=== PATIENT | female | born 1935 | race Caucasian/White ===

== ENCOUNTER 2018-06-20 19:28 | Emergency (ER) | payer MEDICARE, OTHER ==
[~2018-06-20] VITALS: Ht 157.5 cm; Wt 71.2 kg
[~2018-06-20 19:28] MED LIST: DIOVAN HCT 1601 EACH PO; DIOVAN160 MG PO; METOPROLOL SUC100 MG PO; NIFEDIPINE ER30 MG PO
--- OUTSIDE RECORDS SUMMARY | 2018-06-20 19:31 | XMS REPORT | Clinical Summary ---
Author Author [facility] Organization [facility] Address Unknown Phone Unavailable Care Team Providers Care Press Catcher Name Role Phone Tj Morgan MD PCP Allergies Comments Active Allergy Reactions Severity Noted Date Iodinated Contrast- Oral 01/28/2016 And Iv Dye Niacin 01/28/2016 Ramipril 01/28/2016 Sulfa (Sulfonamide 01/28/2016 Antibiotics) Medications End Date Status Medication Sig Dispensed Refills Start Date Active metoprolol succinate XL Take 100 mg 0 (TOPROL-XL) 100 mg 24 hr by mouth tablet daily. Active NIFEdipine XL (NIFEDICAL TK 1 T PO 0 XL) 30 MG 24 hr tablet ONCE D Active clopidogrel (PLAVIX) 75 Take 75 mg by 0 mg tablet mouth daily. Active venlafaxine XR Take 75 mg by 0 (EFFEXOR-XR) 75 MG 24 hr mouth daily. capsule Active VITAMIN B COMPLEX ORAL Take 1 tablet 0 by mouth daily. Active CALCIUM CARBONATE/VITAMIN Take 1 tablet 0 D3 (OS-AMANDA 500 + D3 ORAL) by mouth daily. Active cholecalciferol, vitamin Take 2,000 0 D3, (VITAMIN D3) 2,000 Units by unit capsule capsule mouth daily. Active aspirin (ECOTRIN) 81 MG Take 81 mg by 0 enteric coated tablet mouth daily. Active esomeprazole (NexIUM) 40 Take 40 mg by 0 MG capsule mouth daily before breakfast. Active BD LUER-GARY SYRINGE 3 mL USE TO INJECT 10 Syringe 6 23 gauge x 1 1/2" syringe 1 ML 7 INTRAMUSCULAR LY EVERY 4 WEEKS DIRECTED Active furosemide (LASIX) 40 mg Take 40 mg by 0 tablet mouth daily. 10/20/2018 Active carbidopa-levodopa Take 1 tablet 360 tablet 1 (SINEMET) 25-100 mg per by mouth 4 9 tablet (four) times a day for 180 days. Active cyanocobalamin 1,000 INJECT 1 ML 10 mL 6 mcg/mL injection INTRAMUSCULAR 9 LY EVERY 4 WEEKS DIRECTED Active losartan (COZAAR) 50 MG Take 50 mg by 0 tablet mouth daily. 05/10/2019 Active carbidopa-levodopa Take 1 tablet 360 tablet 3 (SINEMET) 25-100 mg per by mouth 4 9 tablet (four) times a day. 12/31/2019 Active cyanocobalamin 1,000 Inject 1 mL 10 mL 1 mcg/mL injection (1,000 mcg 9 total) into the shoulder, thigh, or buttocks every 30 (thirty) days. 05/10/2019 Active syringe with needle, 1 Units every 15 Syringe 1 safety 3 mL 23 gauge x 1" 30 (thirty) 9 syringe days. 05/10/2018 Discontinued valsartan (DIOVAN) 160 MG Take 80 mg by 0 tablet mouth daily. 05/10/2018 Discontinued spironolactone Take 25 mg by 0 (ALDACTONE) 25 MG tablet mouth daily. 05/10/2018 Discontinued cyanocobalamin 1,000 INJECT 1 ML 10 mL 6 mcg/mL injection INTRAMUSCULAR 7 LY EVERY 4 WEEKS DIRECTED 10/19/2017 Discontinued donepezil (ARICEPT) 10 MG Take 1 tablet 90 tablet 3 tablet (10 mg total) 7 by mouth nightly. 05/10/2018 Discontinued carbidopa-levodopa Take 1 tablet 40 tablet 0 (SINEMET) 25-100 mg per by mouth 4 8 tablet (four) times a day. Active Problems Problem Noted Date Chronic midline low back pain without sciatica 08/18/2016 Osteoarthritis of spine with radiculopathy, lumbar region 08/04/2016 Abnormal gait 01/28/2016 Cobalamin deficiency 01/28/2016 Essential hypertension 01/28/2016 Mixed anxiety depressive disorder 01/28/2016 Parkinson's disease 01/28/2016 Spinal stenosis of lumbar region 01/28/2016 Encounters Care Team Description Date Type Specialty Aaron Espinosa MD Parkinson's disease (HCC) (Primary Dx); Abnormal gait; Mixed anxiety depressive disorder; Chronic midline low back pain without sciatica; Spinal stenosis of lumbar region, unspecified whether neurogenic claudication present 05/10/2018 Office Visit Neurology Aaron Espinosa MD 05/09/2018 Refill Neurology Aaron Espinosa MD 04/22/2018 Refill Neurology Aaron Espinosa MD Parkinson's disease (Primary Dx); Abnormal gait; Mixed anxiety depressive disorder; Chronic midline low back pain without sciatica 10/19/2017 Office Visit Neurology after 06/19/2017 Family History Medical History Relation Name Comments Heart attack Father Parkinsonism Mother Stroke Mother Lung cancer Sister Relation Name Status Comments Father (Age 61) Mother (Age 87) Sister (Age 69) Social History Date Tobacco Use Types Packs/Day Years Used Former Smoker Smokeless Tobacco: Never Used Comments: stopped 25-30 years ago Alcohol Use Drinks/Week oz/Week Comments Yes 1-2 Glasses 0.6 - 1.2 occasional of wine Sex Assigned at Date Recorded Not on file Industry Job Start Date Occupation Not on file Not on file Not on file Travel End Travel History Travel Start No recent travel history available. Last Filed Vital Signs Time Taken Vital Sign Reading 05/10/2018 8:43 AM [employer] Blood Pressure 112/67 05/10/2018 8:43 AM [employer] Pulse 60 - Temperature - - Respiratory Rate - - Oxygen Saturation - - Inhaled Oxygen - Concentration 05/10/2018 8:43 AM [employer] Weight 67.6 kg (149 lb) 05/10/2018 8:43 AM [employer] Height 154.9 cm (5' 1") 05/10/2018 8:43 AM [employer] Body Mass Index 28.15 Plan of Treatment Care Team Description Date Type Specialty Aaron Espinosa MD [address] [id number] 11/12/2018 Office Visit Neurology Health Maintenance Due Date Last Done Comments SHINGLES VACCINES (#1) 1987 65+ PNEUMOCOCCAL VACCINE 2002 06/24/2013 (2 of 2 - PPSV23) INFLUENZA VACCINE 11/15/2017 12/28/2012 PNEUMOCOCCAL Completed 06/24/2013 POLYSACCHARIDE VACCINE AGE 65 AND OVER Results Not on fileafter 06/19/2017 Insurance Payer Benefit Subscriber ID Type Phone Address Plan / Group AETNA AETNA xxxxxxxx HMO HMO,POS,EP O, [facility]/[employer] Advance Directives Patient has advance care planning documents on file. For more information, rd macias contact: Eliu Romero [phone] [place] [address]
[2018-06-20] MEDS ORDERED: IBUPROFEN 400 MG TAB PO ONE (19:45)
--- NOTE | 2018-06-20 19:50 | NUR ---
PATIENT WITH [facility] HEADING TO RADILOGY DEPARTMENT
--- NOTE | 2018-06-20 20:14 | Diagnostic Imaging Report ---
LEFT KNEE - 3 Images HISTORY: Fell, rule out fracture COMPARISON: None available. FINDINGS: Bones: No acute displaced fracture. No aggressive osseous lesion. Joints: Tricompartmental degenerative changes, most notably moderate of the medial compartment. Soft tissues: Diffuse scattered atherosclerotic vascular calcifications. Partially visualized metallic vascular stent at the posterior aspect of the mid thigh. IMPRESSION: 1. No acute radiographic abnormality. 2. Medial compartment predominant tricompartmental osteoarthrosis. Signed by: Dr. Toni Thornton D.O., M.M.M. on 06/20/2018 8:10 PM
--- NOTE | 2018-06-20 20:46 | Diagnostic Imaging Report ---
Examination: CT head without contrast Clinical Indication: Fall with head injury. Technique: Transaxial noncontrast images from the skull base through the vertex were obtained. Sagittal and coronal reformatted images were done. Dose modulation, iterative reconstruction, and/or weight based adjustment of the mA/kV was utilized to reduce the radiation dose to as low as reasonably achievable. Comparison: None. Findings: Scalp: No abnormalities. Bones: Intact. No fractures. No blastic or lytic lesions. Brain sulci: Moderate volume loss for patient's age. Ventricles: No hydrocephalus. Extra-axial space: No abnormalities. Parenchyma: There are mild confluent areas of low-attenuation within subcortical and periventricular white matter, nonspecific, but could represent microvascular ischemic disease. There is a chronic lacunar infarct involving the right striatocapsular region. No masses, hemorrhage, or acute or chronic cortical based vascular insults. Suprasellar region: No abnormalities. Craniocervical junction: The foramen magnum is patent. No Chiari one malformation. Incidental findings: Atherosclerotic calcification of the cavernous and supraclinoid internal carotid and V4 segments of the bilateral vertebral arteries. Impression: 1. No acute intracranial finding. 2. Mild chronic microvascular ischemic change. Chronic right striatocapsular infarct. 3. Moderate volume loss. Signed by: Dr. Dania Bernal M.D. on 06/20/2018 8:43 PM
--- NOTE | 2018-06-20 20:49 | Diagnostic Imaging Report ---
Examination: CT CERVICAL SPINE WITHOUT CONTRAST HISTORY:Neck injury after fall. COMPARISON:None. TECHNIQUE: Multidetector helical axial images were obtained without contrast from the foramen magnum to T1. Coronal and sagittal reformatted images were done. Bone and soft tissue windows were evaluated. Dose modulation, iterative reconstruction, and/or weight based adjustment of the mA/kV was utilized to reduce the radiation dose to as low as reasonably achievable. FINDINGS: Alignment:Normal alignment and lordosis. Vertebrae: Normal height and density. No acute fracture, infection or neoplasm. Disc space heights: Normal height. Caliber of spinal canal: Developmentally normal. Posterior fossa and craniocervical junction: Foramen magnum patent. No Chiari 1 malformation. Soft tissues: No abnormality. Degenerative changes: Moderate bilateral facet arthropathy from C2 through C5. No disc herniation or canal stenosis. Visualized lung apices: No abnormalities. IMPRESSION: No acute abnormalities. Signed by: Dr. Dania Bernal M.D. on 06/20/2018 8:45 PM
== END 2018-06-20 22:24 | disposition home or self-care (01) ==
LOC: ER 19:28
DX: S00.83XA Contusion of other part of head, initial encounter (principal); S80.02XA Contusion of left knee, initial encounter; W01.0XXA Fall on same level from slipping, tripping and stumbling without subsequent striking against object, initial encounter; Y92.511 Restaurant or cafe as the place of occurrence of the external cause; I12.0 Hypertensive chronic kidney disease with stage 5 chronic kidney disease or end stage renal disease; N18.6 End stage renal disease; G20 Parkinson's disease
CPT/HCPCS: 70450; 72125; 99284

== ENCOUNTER 2023-04-17 09:53 | Inpatient (IN) | payer OTHER, MEDICARE ==
[2023-04-17] VITALS (24 sets, daily range): BP systolic 90–149; BP diastolic 51–124; PULSE 56–78; RESP 15–26; TEMP 97.8–98.3; O2SAT 85–100
[~2023-04-17] VITALS: Ht 157.5 cm; Wt 49.0 kg
[2023-04-17] MEDS ORDERED: ALBUTEROL/IPRATROPIUM 3 ML NEB NEB ONE (10:00)
[2023-04-17 10:26] LABS: BASOPHILS % 0.4 % (0.0-1.0); EOSINOPHILS % 0.1 % (0.0-6.0); HEMOGLOBIN 8.2 g/dL (12.0-16.0); LYMPHOCYTES # (AUTO) 0.8 (1.0-3.2); LYMPHOCYTES % 9.2 % (18.0-39.1); MEAN CORPUSCULAR HEMOGLOBIN 31.2 pg (28-32); MEAN CORPUSCULAR HGB CONC 31.5 g/dL (31-35); MEAN CORPUSCULAR VOLUME 98.9 fL (81-99); MONOCYTES # (AUTO) 0.8 (0.2-0.8); MONOCYTES % 9.2 % (4.4-11.3); NEUTROPHILS # (AUTO) 6.9 (2.1-6.9); NEUTROPHILS % 80.7 % (38.7-80.0); PLATELET COUNT 233 x10e3/uL (140-360); RED BLOOD COUNT 2.63 x10e6/uL (3.6-5.1); RED CELL DISTRIBUTION WIDTH 17.9 % (11.7-14.4); WHITE BLOOD COUNT 8.48 x10e3/uL (4.8-10.8)
[2023-04-17 10:45] LABS: ALBUMIN/GLOBULIN RATIO 1.4 (0.8-2.0); ALKALINE PHOSPHATASE 38 IU/L (40-150); ANION GAP 15.3 mmol/L (8-16); BILIRUBIN,TOTAL 0.4 mg/dL (0.2-1.2); BLOOD UREA NITROGEN 35 mg/dL (7-26); BUN/CREATININE RATIO 15 (6-25); CALCIUM 8.1 mg/dL (8.4-10.2); CARBON DIOXIDE 18 mmol/L (22-29); CHLORIDE 108 mmol/L (98-107); CREATINE KINASE 346 IU/L (29-168); CREATININE, SERUM 2.39 mg/dL (0.57-1.11); EST GLOMERULAR FILTRATION RATE 19 ML/MIN (>=60); GLUCOSE 93 mg/dL (74-118); POTASSIUM 4.3 mmol/L (3.5-5.1); SODIUM 137 mmol/L (136-145); TOTAL PROTEIN 5.2 g/dL (6.5-8.1)
[2023-04-17] MEDS ORDERED: FUROSEMIDE INJ 10 MG/ML 4 ML VIAL IV ONE (10:45)
[2023-04-17 10:50] LABS: ALANINE AMINOTRANSFERASE < 6 IU/L (0-55)
[2023-04-17 10:54] LABS: TROPONIN I 4.462 ng/mL (0-0.300)
[2023-04-17] MEDS ORDERED: ALBUTEROL/IPRATROPIUM 3 ML NEB NEB SCH (11:00)
[2023-04-17] MEDS ORDERED: ENOXAPARIN INJ 80 MG/0.8 ML SYR SC ONE (11:15)
[2023-04-17] MEDS ORDERED: ASPIRIN 300 MG SUPP PR STA (11:15)
[2023-04-17] MEDS ORDERED: ASPIRIN 325 MG TAB PO ONE (11:15)
[2023-04-17] MEDS ORDERED: ALBUTEROL/IPRATROPIUM 3 ML NEB NEB PRN (11:30)
[2023-04-17] MEDS ORDERED: ONDANSETRON HCL INJ 2MG/ML 2ML 2 MG/ML VIAL IV PRN (11:30)
[2023-04-17] MEDS ORDERED: HYDRALAZINE HCL 20 MG/ML VIAL IV PRN (12:00)
[2023-04-17] MEDS ORDERED: CLOPIDOGREL BISULFATE 75 MG TAB PO ONE (12:15)
[2023-04-17 13:37] LABS: CLARITY,URINE CLEAR (CLEAR); COLOR,URINE YELLOW (YELLOW); PH,URINE 5.5 (5 - 7)
[2023-04-17 13:38] LABS: BILIRUBIN,URINE NEGATIVE (NEGATIVE); GLUCOSE, URINE NEGATIVE (NEGATIVE); KETONES,URINE NEGATIVE (NEGATIVE); LEUKOCYTE ESTERASE ,URINE NEGATIVE (NEGATIVE); NITRITE,URINE NEGATIVE (NEGATIVE); PROTEIN,URINE DIPSTICK >=300 (NEGATIVE); URINE UROBILINOGEN 0.2 mg/dL (0.2 - 1)
[2023-04-17 13:55] LABS: BACTERIA,URINE RARE /HPF; EPITHELIAL CELLS,URINE FEW /LPF; RBC,URINE 0-5 /HPF (0-5); WBC,URINE (MAN) 0-5 /HPF (0-5)
[2023-04-17] MEDS: LORAZEPAM 0.5 MG TAB PO PRN (15:36)
[2023-04-17] MEDS ORDERED: FUROSEMIDE INJ 10 MG/ML 4 ML VIAL IV SCH (17:00)
[2023-04-17 20:14] LABS: TROPONIN I 18.319 ng/mL (0-0.300)
[2023-04-17] MEDS: FUROSEMIDE INJ 10 MG/ML 4 ML VIAL IV SCH (21:16)
[2023-04-17] MEDS: ACETAMINOPHEN 1000 MG/100 ML IV PRN (22:00)
[2023-04-18] VITALS (46 sets, daily range): BP systolic 83–153; BP diastolic 54–130; PULSE 54–87; RESP 12–33; TEMP 97.2–99.3; O2SAT 85–100
[2023-04-18] MEDS ORDERED: DEXTROSE 50% SYRINGE 50 ML IV STA (02:05)
[2023-04-18] MEDS ORDERED: PANTOPRAZOLE SO20 MG PO (04:59)
[2023-04-18] MEDS ORDERED: AMLODIPINE BESY10 MG PO (04:59)
[2023-04-18] MEDS ORDERED: CLOPIDOGREL75 MG PO (04:59)
[2023-04-18] MEDS ORDERED: ATORVASTATIN CA10 MG PO (04:59)
[2023-04-18] MEDS ORDERED: SENNA-S 8.6-501 EACH PO (04:59)
[2023-04-18] MEDS ORDERED: HYOSCYAMINE0.125 M1 PO (04:59)
[2023-04-18] MEDS ORDERED: ASPIRIN CHEW81 MG PO (04:59)
[2023-04-18] MEDS ORDERED: LACTULOSE10 GM/15 M (04:59)
[2023-04-18] MEDS ORDERED: HYDRALAZINE HCL25 MG PO (04:59)
[2023-04-18] MEDS ORDERED: ONDANSETRON HCL4 MG PO (04:59)
[2023-04-18] MEDS ORDERED: SINEMET 25-1001 EACH PO (04:59)
[2023-04-18] MEDS ORDERED: COREG6.25 MG PO (04:59)
[2023-04-18] MEDS ORDERED: MELATONIN3 MG PO (04:59)
[2023-04-18 06:32] LABS: BASOPHILS % 0.3 % (0.0-1.0); EOSINOPHILS # (AUTO) 0.1 (0.0-0.4); EOSINOPHILS % 1.1 % (0.0-6.0); HEMATOCRIT 27.2 % (34.2-44.1); HEMOGLOBIN 8.8 g/dL (12.0-16.0); LYMPHOCYTES # (AUTO) 0.6 (1.0-3.2); LYMPHOCYTES % 8.9 % (18.0-39.1); MEAN CORPUSCULAR HEMOGLOBIN 31.3 pg (28-32); MEAN CORPUSCULAR HGB CONC 32.4 g/dL (31-35); MEAN CORPUSCULAR VOLUME 96.8 fL (81-99); MONOCYTES # (AUTO) 0.7 (0.2-0.8); MONOCYTES % 10.7 % (4.4-11.3); NEUTROPHILS % 78.7 % (38.7-80.0); PLATELET COUNT 249 x10e3/uL (140-360); RED BLOOD COUNT 2.81 x10e6/uL (3.6-5.1); WHITE BLOOD COUNT 6.29 x10e3/uL (4.8-10.8)
[2023-04-18 06:56] LABS: ANION GAP 16.6 mmol/L (8-16); CALCIUM 8.2 mg/dL (8.4-10.2); CREATININE, SERUM 2.38 mg/dL (0.57-1.11); POTASSIUM 3.6 mmol/L (3.5-5.1)
[2023-04-18 07:21] LABS: MAGNESIUM 1.7 MG/DL (1.3-2.1); PHOSPHORUS 4.1 MG/DL (2.3-4.7)
[2023-04-18 07:35] LABS: TROPONIN I 20.743 ng/mL (0-0.300)
[2023-04-18 07:45] LABS: THYROID STIMULATING HORMONE 3.267 uIU/mL (0.350-4.940)
[2023-04-18] MEDS ORDERED: SENNA-S TABLET PO PRN (08:00)
[2023-04-18] MEDS: CARBIDOPA/LEVODOPA 25/100 TAB PO SCH ×4 (09:00→20:14)
[2023-04-18] MEDS: CLOPIDOGREL BISULFATE 75 MG TAB PO SCH (09:00)
[2023-04-18] MEDS: FUROSEMIDE INJ 10 MG/ML 4 ML VIAL IV SCH ×2 (09:19→20:14)
[2023-04-18] MEDS: ACETAMINOPHEN 1000 MG/100 ML IV PRN (11:09)
[2023-04-18 15:03] LABS: TROPONIN I 17.429 ng/mL (0-0.300)
[2023-04-18] MEDS: DEXTROSE 10% 1,000 ML IV SCH (15:26)
[2023-04-18] MEDS ORDERED: ENOXAPARIN SOD INJ 40 MG/0.4 ML SYR SC SCH (17:00)
[2023-04-18] MEDS ORDERED: Morphine 2mg Syringe 2 MG/ML SYR IV ONE (20:30)
[2023-04-18] MEDS ORDERED: NITROGLYCERIN 0.4 MG SUBL SL ONE (20:45)
[2023-04-18] MEDS ORDERED: DEXTROSE 5% IV SCH ×5 (20:45→21:00)
[2023-04-18] MEDS ORDERED: HEPARIN IV SCH ×5 (20:45→21:00)
[2023-04-18] MEDS ORDERED: [UNRECOGNIZED DRUG - OTHER] IV SCH ×5 (20:45→21:00)
[2023-04-18 21:40] LABS: INR 1.1; PROTHROMBIN TIME 14.4 seconds (11.9-14.5)
[2023-04-18] MEDS ORDERED: HEPARIN 25,000 UNIT DRIP IV ONE (21:41)
[2023-04-18] MEDS: HEPARIN 25,000 UNIT/D5W 250ML 600 UNIT in DEXTROSE 5% 250ML 250 ML IV SCH (21:56)
[2023-04-19] VITALS (31 sets, daily range): BP systolic 107–144; BP diastolic 59–97; PULSE 60–80; RESP 13–25; TEMP 98.7–99.4; O2SAT 94–100
[2023-04-19 04:37] LABS: BASOPHILS % 0.3 % (0.0-1.0); EOSINOPHILS # (AUTO) 0.1 (0.0-0.4); EOSINOPHILS % 1.6 % (0.0-6.0); HEMATOCRIT 24.6 % (34.2-44.1); LYMPHOCYTES % 17.6 % (18.0-39.1); MEAN CORPUSCULAR HEMOGLOBIN 31.4 pg (28-32); MEAN CORPUSCULAR HGB CONC 32.5 g/dL (31-35); MEAN CORPUSCULAR VOLUME 96.5 fL (81-99); MONOCYTES # (AUTO) 0.8 (0.2-0.8); NEUTROPHILS # (AUTO) 3.9 (2.1-6.9); NEUTROPHILS % 67.2 % (38.7-80.0); PLATELET COUNT 229 x10e3/uL (140-360); RED BLOOD COUNT 2.55 x10e6/uL (3.6-5.1); RED CELL DISTRIBUTION WIDTH 17.9 % (11.7-14.4); WHITE BLOOD COUNT 5.78 x10e3/uL (4.8-10.8)
[2023-04-19 05:59] LABS: ANION GAP 13.4 mmol/L (8-16); BLOOD UREA NITROGEN 34 mg/dL (7-26); BUN/CREATININE RATIO 15 (6-25); CALCIUM 7.8 mg/dL (8.4-10.2); CARBON DIOXIDE 22 mmol/L (22-29); CHLORIDE 108 mmol/L (98-107); CREATININE, SERUM 2.26 mg/dL (0.57-1.11); EST GLOMERULAR FILTRATION RATE 21 ML/MIN (>=60); GLUCOSE 106 mg/dL (74-118); POTASSIUM 3.4 mmol/L (3.5-5.1); SODIUM 140 mmol/L (136-145)
[2023-04-19 06:14] LABS: ALBUMIN 2.6 g/dL (3.5-5.0); ALBUMIN/GLOBULIN RATIO 1.2 (0.8-2.0); ALKALINE PHOSPHATASE 33 IU/L (40-150); BILIRUBIN,TOTAL 0.4 mg/dL (0.2-1.2); TOTAL PROTEIN 4.8 g/dL (6.5-8.1)
[2023-04-19 06:15] LABS: ALANINE AMINOTRANSFERASE < 6 IU/L (0-55)
[2023-04-19] MEDS: CARBIDOPA/LEVODOPA 25/100 TAB PO SCH ×4 (07:38→21:26)
[2023-04-19] MEDS: CLOPIDOGREL BISULFATE 75 MG TAB PO SCH (07:38)
[2023-04-19] MEDS: FUROSEMIDE INJ 10 MG/ML 4 ML VIAL IV SCH ×2 (08:14→21:26)
[2023-04-19] MEDS ORDERED: POTASSIUM CHLORIDE 20MEQ/100ML 100 ML IV ONE (08:30)
[2023-04-19] MEDS: DEXTROSE 10% 1,000 ML IV SCH (11:15)
[2023-04-19] MEDS: HEPARIN 25,000 UNIT/D5W 250ML 600 UNIT in DEXTROSE 5% 250ML 250 ML IV SCH (21:15)
[2023-04-20] VITALS (13 sets, daily range): BP systolic 99–143; BP diastolic 46–108; PULSE 61–83; RESP 13–26; TEMP 98.7–99.5; O2SAT 98–100
[2023-04-20] MEDS: HYOSCYAMINE 0.125 MG TAB PO PRN (06:27)
[2023-04-20 06:34] LABS: BASOPHILS % 0.4 % (0.0-1.0); EOSINOPHILS # (AUTO) 0.1 (0.0-0.4); EOSINOPHILS % 1.6 % (0.0-6.0); HEMATOCRIT 26.5 % (34.2-44.1); HEMOGLOBIN 8.6 g/dL (12.0-16.0); LYMPHOCYTES # (AUTO) 0.7 (1.0-3.2); MEAN CORPUSCULAR HGB CONC 32.5 g/dL (31-35); MEAN CORPUSCULAR VOLUME 95.7 fL (81-99); MONOCYTES # (AUTO) 0.8 (0.2-0.8); NEUTROPHILS # (AUTO) 4.1 (2.1-6.9); NEUTROPHILS % 71.6 % (38.7-80.0); PLATELET COUNT 230 x10e3/uL (140-360); RED BLOOD COUNT 2.77 x10e6/uL (3.6-5.1); RED CELL DISTRIBUTION WIDTH 17.9 % (11.7-14.4); WHITE BLOOD COUNT 5.66 x10e3/uL (4.8-10.8)
[2023-04-20 07:02] LABS: ALBUMIN 2.8 g/dL (3.5-5.0); ALBUMIN/GLOBULIN RATIO 1.1 (0.8-2.0); ALKALINE PHOSPHATASE 36 IU/L (40-150); ANION GAP 14.5 mmol/L (8-16); BILIRUBIN,TOTAL 0.5 mg/dL (0.2-1.2); BLOOD UREA NITROGEN 29 mg/dL (7-26); BUN/CREATININE RATIO 15 (6-25); CARBON DIOXIDE 23 mmol/L (22-29); CHLORIDE 103 mmol/L (98-107); CREATININE, SERUM 1.95 mg/dL (0.57-1.11); EST GLOMERULAR FILTRATION RATE 25 ML/MIN (>=60); GLUCOSE 107 mg/dL (74-118); POTASSIUM 3.5 mmol/L (3.5-5.1); SODIUM 137 mmol/L (136-145); TOTAL PROTEIN 5.3 g/dL (6.5-8.1)
[2023-04-20 07:04] LABS: ALANINE AMINOTRANSFERASE < 6 IU/L (0-55)
[2023-04-20] MEDS: DEXTROSE 10% 1,000 ML IV SCH (07:15)
[2023-04-20] MEDS: POTASSIUM CHLORIDE 20 MEQ TAB CR PO ONE ×2 (08:30→09:53)
[2023-04-20] MEDS: FUROSEMIDE INJ 10 MG/ML 4 ML VIAL IV SCH ×2 (08:30→20:56)
[2023-04-20] MEDS: CARBIDOPA/LEVODOPA 25/100 TAB PO SCH ×4 (08:30→20:55)
[2023-04-20] MEDS: CLOPIDOGREL BISULFATE 75 MG TAB PO SCH (08:30)
[2023-04-20] MEDS: LORAZEPAM 0.5 MG TAB PO PRN (20:56)
[2023-04-20] MEDS: HEPARIN 25,000 UNIT/D5W 250ML 600 UNIT in DEXTROSE 5% 250ML 250 ML IV SCH (21:15)
[2023-04-21] VITALS (13 sets, daily range): BP systolic 107–145; BP diastolic 60–100; PULSE 66–78; RESP 15–26; TEMP 97.7–99; O2SAT 96–100
[2023-04-21 06:32] LABS: BASOPHILS % 0.5 % (0.0-1.0); EOSINOPHILS # (AUTO) 0.1 (0.0-0.4); EOSINOPHILS % 2.5 % (0.0-6.0); HEMATOCRIT 29.3 % (34.2-44.1); HEMOGLOBIN 9.5 g/dL (12.0-16.0); LYMPHOCYTES # (AUTO) 0.8 (1.0-3.2); LYMPHOCYTES % 14.7 % (18.0-39.1); MEAN CORPUSCULAR HEMOGLOBIN 31.5 pg (28-32); MEAN CORPUSCULAR HGB CONC 32.4 g/dL (31-35); MONOCYTES # (AUTO) 0.9 (0.2-0.8); MONOCYTES % 15.6 % (4.4-11.3); NEUTROPHILS # (AUTO) 3.8 (2.1-6.9); NEUTROPHILS % 66.3 % (38.7-80.0); PLATELET COUNT 240 x10e3/uL (140-360); RED BLOOD COUNT 3.02 x10e6/uL (3.6-5.1); RED CELL DISTRIBUTION WIDTH 17.6 % (11.7-14.4)
[2023-04-21 07:01] LABS: ALANINE AMINOTRANSFERASE < 6 IU/L (0-55); ALBUMIN 2.9 g/dL (3.5-5.0); ALKALINE PHOSPHATASE 41 IU/L (40-150); ANION GAP 14.5 mmol/L (8-16); BILIRUBIN,TOTAL 0.3 mg/dL (0.2-1.2); BLOOD UREA NITROGEN 26 mg/dL (7-26); BUN/CREATININE RATIO 15 (6-25); CALCIUM 8.9 mg/dL (8.4-10.2); CARBON DIOXIDE 26 mmol/L (22-29); CHLORIDE 106 mmol/L (98-107); CREATININE, SERUM 1.76 mg/dL (0.57-1.11); EST GLOMERULAR FILTRATION RATE 28 ML/MIN (>=60); GLUCOSE 84 mg/dL (74-118); POTASSIUM 3.5 mmol/L (3.5-5.1); SODIUM 143 mmol/L (136-145); TOTAL PROTEIN 5.7 g/dL (6.5-8.1)
[2023-04-21] MEDS: CLOPIDOGREL BISULFATE 75 MG TAB PO SCH (08:22)
[2023-04-21] MEDS: FUROSEMIDE INJ 10 MG/ML 4 ML VIAL IV SCH (08:23)
[2023-04-21] MEDS: CARBIDOPA/LEVODOPA 25/100 TAB PO SCH ×4 (08:23→20:33)
[2023-04-21] MEDS ORDERED: MAGNESIUM HYDROXIDE 30 ML UDC PO PRN (09:30)
[2023-04-21] MEDS ORDERED: BISACODYL 10 MG SUPP PR PRN (09:30)
[2023-04-21] MEDS: SENNA-S TABLET PO SCH ×2 (09:49→17:14)
[2023-04-21] MEDS ORDERED: MAGNESIUM HYDROXIDE 30 ML UDC PO ONE (10:00)
[2023-04-21] MEDS ORDERED: LACTULOSE SYRUP 20 GM/30 ML UDC PO ONE (17:30)
[2023-04-21] MEDS: POLYETHYLENE GLYCOL 3350 17 GM PACK PO SCH (17:40)
[2023-04-21] MEDS: LORAZEPAM 0.5 MG TAB PO PRN (20:32)
[2023-04-21] MEDS: HYOSCYAMINE 0.125 MG TAB PO PRN (20:41)
[2023-04-21] MEDS: HEPARIN 25,000 UNIT/D5W 250ML 600 UNIT in DEXTROSE 5% 250ML 250 ML IV SCH (21:15)
[2023-04-22] VITALS (8 sets, daily range): BP systolic 107–157; BP diastolic 51–79; PULSE 61–74; RESP 16–22; TEMP 97.6–98.1; O2SAT 98–100
[2023-04-22 07:58] LABS: ANION GAP 15.2 mmol/L (8-16); CALCIUM 8.4 mg/dL (8.4-10.2); CREATININE, SERUM 1.55 mg/dL (0.57-1.11)
[2023-04-22 08:01] LABS: POTASSIUM 3.2 mmol/L (3.5-5.1)
[2023-04-22] MEDS ORDERED: FUROSEMIDE INJ 10 MG/ML 4 ML VIAL IV SCH (09:00)
[2023-04-22] MEDS ORDERED: POTASSIUM CHLORIDE 20 MEQ TAB CR PO ONE (09:50)
[2023-04-22] MEDS: CARBIDOPA/LEVODOPA 25/100 TAB PO SCH ×4 (09:57→20:07)
[2023-04-22] MEDS: FUROSEMIDE 40 MG TAB PO SCH (09:57)
[2023-04-22] MEDS: CLOPIDOGREL BISULFATE 75 MG TAB PO SCH (09:57)
[2023-04-22] MEDS: SENNA-S TABLET PO SCH ×2 (10:02→17:38)
[2023-04-22] MEDS: POLYETHYLENE GLYCOL 3350 17 GM PACK PO SCH ×2 (10:04→17:38)
[2023-04-22] MEDS: DEXTROSE 5% IV SCH ×2 (13:10→20:02)
[2023-04-22] MEDS: [UNRECOGNIZED DRUG - OTHER] IV SCH ×2 (13:10→20:02)
[2023-04-22] MEDS: HEPARIN IV SCH ×2 (13:10→20:02)
[2023-04-22] MEDS: LORAZEPAM 0.5 MG TAB PO PRN (20:05)
[2023-04-22] MEDS: HYOSCYAMINE 0.125 MG TAB PO PRN (20:05)
[2023-04-23] VITALS (11 sets, daily range): BP systolic 112–160; BP diastolic 58–76; PULSE 63–74; RESP 16–20; TEMP 97.5–98.2; O2SAT 98–100
[2023-04-23] MEDS: DEXTROSE 5% IV SCH ×2 (00:27→04:26)
[2023-04-23] MEDS: [UNRECOGNIZED DRUG - OTHER] IV SCH ×2 (00:27→04:26)
[2023-04-23] MEDS: HEPARIN IV SCH ×2 (00:27→04:26)
[2023-04-23 07:08] LABS: BASOPHILS % 0.3 % (0.0-1.0); EOSINOPHILS # (AUTO) 0.1 (0.0-0.4); EOSINOPHILS % 2.3 % (0.0-6.0); HEMATOCRIT 28.7 % (34.2-44.1); HEMOGLOBIN 9.1 g/dL (12.0-16.0); LYMPHOCYTES # (AUTO) 1.1 (1.0-3.2); LYMPHOCYTES % 18.1 % (18.0-39.1); MEAN CORPUSCULAR HGB CONC 31.7 g/dL (31-35); MEAN CORPUSCULAR VOLUME 97.6 fL (81-99); MONOCYTES # (AUTO) 0.8 (0.2-0.8); MONOCYTES % 13.7 % (4.4-11.3); NEUTROPHILS # (AUTO) 3.9 (2.1-6.9); NEUTROPHILS % 65.1 % (38.7-80.0); PLATELET COUNT 228 x10e3/uL (140-360); RED BLOOD COUNT 2.94 x10e6/uL (3.6-5.1); RED CELL DISTRIBUTION WIDTH 17.5 % (11.7-14.4); WHITE BLOOD COUNT 5.98 x10e3/uL (4.8-10.8)
[2023-04-23 07:30] LABS: ANION GAP 12.6 mmol/L (8-16); CALCIUM 8.3 mg/dL (8.4-10.2); CREATININE, SERUM 1.51 mg/dL (0.57-1.11); POTASSIUM 3.6 mmol/L (3.5-5.1)
[2023-04-23] MEDS: SENNA-S TABLET PO SCH ×2 (09:09→18:12)
[2023-04-23] MEDS: CLOPIDOGREL BISULFATE 75 MG TAB PO SCH (09:09)
[2023-04-23] MEDS: POLYETHYLENE GLYCOL 3350 17 GM PACK PO SCH ×2 (09:10→18:13)
[2023-04-23] MEDS: FUROSEMIDE 40 MG TAB PO SCH (09:10)
[2023-04-23] MEDS: CARBIDOPA/LEVODOPA 25/100 TAB PO SCH ×4 (09:44→20:16)
[2023-04-23] MEDS: HYOSCYAMINE 0.125 MG TAB PO PRN (20:16)
[2023-04-24] VITALS (10 sets, daily range): BP systolic 108–162; BP diastolic 39–74; PULSE 62–80; RESP 16–20; TEMP 97.2–98.6; O2SAT 96–100
[2023-04-24] MEDS: DEXTROSE 5% IV SCH ×2 (01:27→08:38)
[2023-04-24] MEDS: HEPARIN IV SCH ×2 (01:27→08:38)
[2023-04-24] MEDS: [UNRECOGNIZED DRUG - OTHER] IV SCH ×2 (01:27→08:38)
[2023-04-24 06:09] LABS: ANION GAP 13.7 mmol/L (8-16); CALCIUM 8.4 mg/dL (8.4-10.2); CREATININE, SERUM 1.39 mg/dL (0.57-1.11); POTASSIUM 3.7 mmol/L (3.5-5.1)
[2023-04-24] MEDS: FUROSEMIDE 40 MG TAB PO SCH (08:40)
[2023-04-24] MEDS: CARBIDOPA/LEVODOPA 25/100 TAB PO SCH ×4 (08:40→21:00)
[2023-04-24] MEDS: CLOPIDOGREL BISULFATE 75 MG TAB PO SCH (08:40)
[2023-04-24] MEDS: POLYETHYLENE GLYCOL 3350 17 GM PACK PO SCH ×2 (08:40→17:54)
[2023-04-24] MEDS: PANTOPRAZOLE SOD 40 MG TABEC PO SCH (08:40)
[2023-04-24] MEDS: SENNA-S TABLET PO SCH ×2 (08:40→17:54)
[2023-04-24] MEDS: MODAFINIL 100 MG TAB PO SCH ×2 (08:42→17:00)
[2023-04-24] MEDS: METOPROLOL TARTRATE 25 MG TAB PO SCH ×2 (12:25→21:00)
[2023-04-24] MEDS ORDERED: ONDANSETRON HCL 4 MG ORAL DISINTEGRATING TAB PO PRN (14:30)
[2023-04-24] MEDS: ATORVASTATIN 40 MG TAB PO SCH (21:00)
[2023-04-25] VITALS (9 sets, daily range): BP systolic 123–164; BP diastolic 60–76; PULSE 53–77; RESP 16–18; TEMP 97.5–98.3; O2SAT 95–100
[2023-04-25] MEDS: SENNA-S TABLET PO SCH ×2 (09:48→18:12)
[2023-04-25] MEDS: ASPIRIN 81 MG CHEW TAB PO SCH (09:48)
[2023-04-25] MEDS: CARBIDOPA/LEVODOPA 25/100 TAB PO SCH ×4 (09:49→21:16)
[2023-04-25] MEDS: CLOPIDOGREL BISULFATE 75 MG TAB PO SCH (09:49)
[2023-04-25] MEDS: MODAFINIL 100 MG TAB PO SCH ×2 (09:49→17:00)
[2023-04-25] MEDS: FUROSEMIDE 40 MG TAB PO SCH (09:49)
[2023-04-25] MEDS: PANTOPRAZOLE SOD 40 MG TABEC PO SCH (09:50)
[2023-04-25] MEDS: METOPROLOL TARTRATE 25 MG TAB PO SCH ×2 (09:50→21:16)
[2023-04-25] MEDS: POLYETHYLENE GLYCOL 3350 17 GM PACK PO SCH ×2 (10:07→17:00)
[2023-04-25] MEDS: ZINC OXIDE 30 GM TUBE TOP SCH (14:00)
[2023-04-25] MEDS: ATORVASTATIN 40 MG TAB PO SCH (21:16)
[2023-04-26] VITALS (9 sets, daily range): BP systolic 110–185; BP diastolic 53–84; PULSE 57–75; RESP 15–20; TEMP 97.6–98; O2SAT 96–100
[2023-04-26 06:25] LABS: ANION GAP 14.7 mmol/L (8-16); CALCIUM 8.8 mg/dL (8.4-10.2); CREATININE, SERUM 1.36 mg/dL (0.57-1.11); POTASSIUM 3.7 mmol/L (3.5-5.1)
[2023-04-26] MEDS: PANTOPRAZOLE SOD 40 MG TABEC PO SCH (08:45)
[2023-04-26] MEDS: ASPIRIN 81 MG CHEW TAB PO SCH (08:45)
[2023-04-26] MEDS: SENNA-S TABLET PO SCH ×2 (08:45→17:37)
[2023-04-26] MEDS: CARBIDOPA/LEVODOPA 25/100 TAB PO SCH ×4 (08:45→21:44)
[2023-04-26] MEDS: MODAFINIL 100 MG TAB PO SCH ×2 (08:45→17:00)
[2023-04-26] MEDS: CLOPIDOGREL BISULFATE 75 MG TAB PO SCH (08:46)
[2023-04-26] MEDS: POLYETHYLENE GLYCOL 3350 17 GM PACK PO SCH ×2 (08:46→17:37)
[2023-04-26] MEDS: METOPROLOL TARTRATE 25 MG TAB PO SCH ×2 (08:46→21:34)
[2023-04-26] MEDS: FUROSEMIDE 40 MG TAB PO SCH (08:47)
[2023-04-26] MEDS: ZINC OXIDE 30 GM TUBE TOP SCH (08:49)
[2023-04-26] MEDS: GUAIFENESIN 600 MG TAB PO PRN (12:19)
[2023-04-26] MEDS: HEPARIN SOD (PORCINE) 5,000 UNIT/ML VIAL SC SCH (21:00)
[2023-04-26] MEDS: ATORVASTATIN 40 MG TAB PO SCH (21:34)
[2023-04-26] MEDS: HYOSCYAMINE 0.125 MG TAB PO PRN (21:35)
[2023-04-27] VITALS: BP 126/56; PULSE 63; RESP 18; TEMP 97.7; O2SAT 100
[2023-04-27 04:00] VITALS: BP 151/70; PULSE 60; RESP 18; TEMP 97.4; O2SAT 100
[2023-04-27 06:02] LABS: BASOPHILS % 0.5 % (0.0-1.0); EOSINOPHILS # (AUTO) 0.1 (0.0-0.4); EOSINOPHILS % 2.1 % (0.0-6.0); HEMATOCRIT 29.3 % (34.2-44.1); HEMOGLOBIN 9.3 g/dL (12.0-16.0); LYMPHOCYTES # (AUTO) 0.9 (1.0-3.2); MEAN CORPUSCULAR HEMOGLOBIN 31.2 pg (28-32); MEAN CORPUSCULAR HGB CONC 31.7 g/dL (31-35); MEAN CORPUSCULAR VOLUME 98.3 fL (81-99); MONOCYTES # (AUTO) 0.8 (0.2-0.8); MONOCYTES % 13.2 % (4.4-11.3); NEUTROPHILS # (AUTO) 3.9 (2.1-6.9); NEUTROPHILS % 67.5 % (38.7-80.0); PLATELET COUNT 268 x10e3/uL (140-360); RED BLOOD COUNT 2.98 x10e6/uL (3.6-5.1); RED CELL DISTRIBUTION WIDTH 16.4 % (11.7-14.4); WHITE BLOOD COUNT 5.83 x10e3/uL (4.8-10.8)
[2023-04-27 08:00] VITALS: BP 151/70; PULSE 60; RESP 18; TEMP 97.4; O2SAT 100
[2023-04-27 08:02] VITALS: PULSE 82; RESP 18; O2SAT 100
[2023-04-27 08:59] VITALS: BP 165/68; PULSE 63; RESP 15; TEMP 98; O2SAT 99
[2023-04-27] MEDS: CARBIDOPA/LEVODOPA 25/100 TAB PO SCH ×2 (09:52→09:55)
[2023-04-27] MEDS: ASPIRIN 81 MG CHEW TAB PO SCH (09:52)
[2023-04-27] MEDS: MODAFINIL 100 MG TAB PO SCH (09:52)
[2023-04-27] MEDS: SENNA-S TABLET PO SCH (09:52)
[2023-04-27 09:53] VITALS: BP 165/68; PULSE 63
[2023-04-27] MEDS: METOPROLOL TARTRATE 25 MG TAB PO SCH (09:53)
[2023-04-27] MEDS: PANTOPRAZOLE SOD 40 MG TABEC PO SCH (09:54)
[2023-04-27] MEDS: FUROSEMIDE 40 MG TAB PO SCH (09:55)
[2023-04-27] MEDS: CLOPIDOGREL BISULFATE 75 MG TAB PO SCH (09:55)
[2023-04-27] MEDS: HEPARIN SOD (PORCINE) 5,000 UNIT/ML VIAL SC SCH (09:58)
[2023-04-27] MEDS: ZINC OXIDE 30 GM TUBE TOP SCH (10:02)
[2023-04-27] MEDS: GUAIFENESIN 600 MG TAB PO PRN (10:29)
[2023-04-27] MEDS: POLYETHYLENE GLYCOL 3350 17 GM PACK PO SCH (10:42)
[2023-04-27] MEDS ORDERED: NYSTATIN 100,000 UNITS/GM CRM 30GM TUBE TOP SCH (11:00)
== END 2023-04-27 13:46 | DRG 280 ==
LOC: ER 09:59 → ERHOLD 10:27 → ICU 12:08 → MED/SURG3 04-21 13:45
PROVIDERS: ADMIT Internal Medicine; ATTEND Internal Medicine
PROC: 5A0935A Assistance with Respiratory Ventilation, Less than 24 Consecutive Hours, High Flow/Velocity Cannula (ICD-10-PCS; principal; 2023-04-17)
DX: I13.0 Hypertensive heart and chronic kidney disease with heart failure and stage 1 through stage 4 chronic kidney disease, or unspecified chronic kidney disease (principal); I50.33 Acute on chronic diastolic (congestive) heart failure; I21.4 Non-ST elevation (NSTEMI) myocardial infarction; I21.A1 Myocardial infarction type 2; N17.0 Acute kidney failure with tubular necrosis; J18.9 Pneumonia, unspecified organism; J96.01 Acute respiratory failure with hypoxia; R53.2 Functional quadriplegia; Z68.1 Body mass index [BMI] 19.9 or less, adult; E87.20 Acidosis, unspecified; F02.84 Dementia in other diseases classified elsewhere, unspecified severity, with anxiety; G20.A1 Parkinson's disease without dyskinesia, without mention of fluctuations; N18.9 Chronic kidney disease, unspecified; E86.0 Dehydration; D63.1 Anemia in chronic kidney disease; R62.7 Adult failure to thrive; R13.12 Dysphagia, oropharyngeal phase; T17.918A Gastric contents in respiratory tract, part unspecified causing other injury, initial encounter; W44.8XXA Other foreign body entering into or through a natural orifice, initial encounter; Y92.230 Patient room in hospital as the place of occurrence of the external cause; G89.29 Other chronic pain; R10.9 Unspecified abdominal pain; F32.9 Major depressive disorder, single episode, unspecified; Z11.52 Encounter for screening for COVID-19; Z79.899 Other long term (current) drug therapy; Z79.02 Long term (current) use of antithrombotics/antiplatelets
CPT/HCPCS: 36415; 71045; 71250; 74018; 74230; 80048; 80053; 81001; 82550; 82607; 82948; 83540; 83735; 83880; 84100; 84443; 84466; 84484; 85025; 85610; 85730; 87086; 87400; 93005; 93306; 93970; 94640; 94760; 94799; 99252; 99284; J0696; J1644; J1650; J1940; J2270; J3480; J7050; J7799; U0002